=== PATIENT | male | born 1995 | race Caucasian/White ===

== ENCOUNTER → 2018-07-08 | Outpatient (CLI) | payer OTHER | LOC: RAD 09:07 | DX: S69.92XA Unspecified injury of left wrist, hand and finger(s), initial encounter (principal); M79.645 Pain in left finger(s); Y99.0 Civilian activity done for income or pay ==

== ENCOUNTER → 2018-07-29 | Outpatient (CLI) | payer OTHER | LOC: RAD 09:39 | DX: S63.105A Unspecified dislocation of left thumb, initial encounter (principal) ==

== ENCOUNTER 2018-08-19 08:00 | Outpatient (RCR) | payer OTHER | END 2018-10-28 | disposition home or self-care (01) | LOC: OT | DX: S62.202D Unspecified fracture of first metacarpal bone, left hand, subsequent encounter for fracture with routine healing (principal) ==

== ENCOUNTER 2024-01-15 19:54 | Emergency (ER) | payer BC ==
[~2024-01-15] VITALS: Ht 180.3 cm; Wt 88.6 kg
[~2024-01-15 19:54] MED LIST: PROTONIX TR40 M1 PO
[2024-01-15] MEDS ORDERED: Famotidine 20 MG TAB PO ONE (20:30)
[2024-01-15] MEDS ORDERED: Cetirizine 10 MG TAB PO ONE (20:30)
[2024-01-15] MEDS ORDERED: EPIPEN 2-PAK1 MG/ML MR (20:30)
[2024-01-15] MEDS ORDERED: Ketorolac 10 MG TAB PO ONE (20:30)
[2024-01-15 20:36] VITALS: BP 112/76
== END 2024-01-15 20:36 | disposition home or self-care (01) ==
LOC: ED 19:54
DX: T63.441A Toxic effect of venom of bees, accidental (unintentional), initial encounter (principal)